=== PATIENT | male | born 1935 | race Asian ===

== ENCOUNTER 2016-11-26 00:16 | Emergency (ER) | payer OTHER ==
[~2016-11-26] VITALS: Ht 170.2 cm; Wt 73.9 kg
[2016-11-26 00:18] VITALS: BP_SYST 216
--- NOTE | 2016-11-26 00:18 | NUR ---
Placed in room 02 . 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 To gown for exam. Side rails up. Report given to ARIANA Dotson.
--- NOTE | 2016-11-26 00:19 | NUR ---
Pt brought in by EMS for c/o hypertension. Pt states he woke up around 1200 to use restroom, states he felt dizzy and lightheaded, states he took BP and it was high. Pt respirations even and unlabored, speaking in full and complete sentences. Will continue to monitor.
--- NOTE | 2016-11-26 00:20 | NUR ---
ER at bedside examining patient.
[2016-11-26] MEDS ORDERED: hydrALAZINE HCL 20 MG/ML VIAL IVP ONE (00:30)
[2016-11-26] MEDS ORDERED: ENALAPRILAT DIHYDRATE 1.25 MG/ML VIAL IVP ONE ×2 (00:30→01:00)
--- NOTE | 2016-11-26 00:39 | NUR ---
Radiology at bedside
[2016-11-26] MEDS ORDERED: FENO160 PO (00:50)
[2016-11-26] MEDS ORDERED: ATEN-41 PO (00:50)
[2016-11-26] MEDS ORDERED: SODI650T PO (00:50)
[2016-11-26] MEDS ORDERED: REPA2TAB7 PO (00:50)
[2016-11-26] MEDS ORDERED: CYAN100067 PO (00:50)
[2016-11-26] MEDS ORDERED: ALLO100T PO (00:50)
[2016-11-26] MEDS ORDERED: ASPI-1063 PO (00:50)
[2016-11-26] MEDS ORDERED: MULT-1117 (00:50)
[2016-11-26] MEDS ORDERED: ATOR40TA68 PO (00:50)
[2016-11-26] MEDS ORDERED: ASPI81TA2 PO (00:50)
[2016-11-26] MEDS ORDERED: LINA5TAB2 PO (00:50)
[2016-11-26] MEDS ORDERED: PIOG30TA26 PO (00:50)
[2016-11-26] MEDS ORDERED: CAND4TAB PO (00:50)
[2016-11-26 00:51] LABS: BASOPHILS % (AUTO) 0.7 % (0.0-2.0); EOSINOPHILS # (AUTO) 0.4 K/uL (0.0-0.4); EOSINOPHILS % (AUTO) 6.6 % (0.0-4.0); HEMATOCRIT 41.9 % (36-54); HEMOGLOBIN 14.1 g/dL (14.0-18.0); LYMPHOCYTES # (AUTO) 2.4 K/uL (1.0-5.5); LYMPHOCYTES % (AUTO) 36.3 % (20.5-51.5); MEAN CORPUSCULAR HEMOGLOBIN 30 pg (27-31); MEAN CORPUSCULAR HGB CONC 34 % (32-36); MEAN CORPUSCULAR VOLUME 90 fL (79.0-98.0); MONOCYTES # (AUTO) 0.5 K/uL (0.0-1.0); NEUTROPHILS # (AUTO) 3.3 K/uL (1.8-7.7); NEUTROPHILS % (AUTO) 49.4 % (40.0-70.0); PLATELET COUNT (AUTO) 268 K/uL (130-430); RED BLOOD CELL COUNT(AUTO) 4.65 MIL/uL (4.2-6.2); RED CELL DISTRIBUTION WIDTH 15.2 % (9.0-15.0); WHITE BLOOD COUNT (AUTO) 6.6 K/uL (4.8-10.8)
--- NOTE | 2016-11-26 00:53 | NUR ---
BP 163/56, HR 66, O2 98% on RA. MD fernandez aware
[2016-11-26 00:56] LABS: ANION GAP 1 (5-15); CALCIUM 8.5 mg/dL (8.4-11.0); CHLORIDE 105 mmol/L (98-107); CREATININE 2.52 mg/dL (0.55-1.30); GLUCOSE 126 mg/dL (70-99); POTASSIUM 3.7 mmol/L (3.5-5.1); SODIUM SERUM 134 mmol/L (136-145); UREA NITROGEN, BLOOD 39 mg/dL (8-21)
[2016-11-26 00:59] LABS: PROTHROMBIN TIME 10.6 SECS (9.5-12.5)
[2016-11-26 01:01] LABS: ALANINE AMINOTRANSFERASE 38 U/L (12-78); ALBUMIN 2.4 g/dL (3.4-4.8); ASPARTATE AMINOTRANSFERASE 53 U/L (10-37); TOTAL BILIRUBIN 0.3 mg/dL (0.0-1.0); TOTAL PROTEIN, SERUM 6.5 g/dL (6.4-8.3)
--- NOTE | 2016-11-26 01:32 | NUR ---
BP 134/59, HR 72, O2 99%. MD fernandez aware
[2016-11-26 02:00] VITALS: BP_SYST 134
--- NOTE | 2016-11-26 02:00 | NUR ---
Patient given written and verbal discharge instructions and verbalizes understanding. ER MD Ontiveros discussed with patient the results and treatment provided. Patient in stable condition. ID arm band removed. IV catheter removed intact and dressing applied, no active bleeding. Rx of candesartan given. Patient educated on pain management and to follow up with PMD. Pain Scale 0/10 Opportunity for questions provided and answered.
== END 2016-11-26 02:00 | disposition home or self-care (01) ==
LOC: SED 00:16
DX: I10 Essential (primary) hypertension (principal); E11.9 Type 2 diabetes mellitus without complications; M10.9 Gout, unspecified; E78.5 Hyperlipidemia, unspecified; Z79.82 Long term (current) use of aspirin
CPT/HCPCS: 36415; 71010; 80053; 84484; 85025; 85379; 85610; 85730; 96374; 96375; 99285; J0360